=== PATIENT | male | born 1990 | race Caucasian/White ===

== ENCOUNTER 2019-04-11 09:21 | Day surgery (SDC) | payer BC ==
[~2019-04-11] VITALS: Ht 170.2 cm; Wt 83.4 kg
[~2019-04-11 09:21] MED LIST: NO MEDS.
[2019-04-11 09:58] VITALS: Ht 170.2 cm; Wt 83.4 kg
[2019-04-11 10:21] VITALS: BP 117/64; PULSE 73; RESP 15
[2019-04-11] MEDS ORDERED: FENTAnyl 50 MCG/ML VIAL ONE (10:51)
[2019-04-11] MEDS ORDERED: MIDAZOLAM 1 MG/ML 2 ML INJ ONE ×2 (10:51)
[2019-04-11 11:24] VITALS: BP 112/60; PULSE 80; RESP 20
== END 2019-04-11 11:09 | disposition home or self-care (01) ==
LOC: GIL 09:21
PROVIDERS: ATTEND Internal Medicine Gastroenterology
DX: K92.1 Melena (principal); K64.1 Second degree hemorrhoids
CPT/HCPCS: 45378; J2250; J3010; Z7610